=== PATIENT | female | born 1965 | race Caucasian/White ===

== ENCOUNTER 2020-11-02 14:55 | Outpatient (CLI) | payer MEDICARE, OTHER, SELFPAY ==
--- NOTE | 2020-11-02 14:45 | DI.RAD_ITS ---
Exam(s) XR WRIST LT COMPLETE EXAM: XR WRIST LT COMPLETE CLINICAL HISTORY: wrist pain s/p fall,M25.532,W19.XXXA. TECHNIQUE: 2D digital imaging was performed. COMPARISON: No exams were available for comparison FINDINGS: BONES: No acute fracture is present. No bony destructive lesion is seen. JOINTS: The carpal bones are normally aligned. SOFT TISSUE: Normal. IMPRESSION: Unremarkable radiographs of the left wrist. DATA REPOSITORY: RADIATION DOSE DELIVERED:
== END 2020-11-02 15:15 ==
PROVIDERS: PCP Nurse Practitioner; Visit Provider Nurse Practitioner
DX: G89.11 Acute pain due to trauma (principal); M25.532 Pain in left wrist; W19.XXXA Unspecified fall, initial encounter; Y99.8 Other external cause status
CPT/HCPCS: 73110

== ENCOUNTER 2020-11-23 02:28 | Outpatient (CLI) | payer MEDICARE, OTHER, SELFPAY ==
--- NOTE | 2020-11-23 06:30 | DI.MAMMO_ITS ---
Exam(s) MAMMO SCREENING EXAM: MAMMO SCREENING CLINICAL HISTORY: screening,Z12.39 TECHNIQUE: Mammograms were interpreted according to the usual protocol including computer analysis w [employer] system, tomosynthesis and C-view imaging. COMPARISON: 2009 through 2019 from [facility]. FINDINGS: The breasts are composed of scattered fibroglandular densities, Breast Density category B. No suspicious masses or suspicious microcalcifications are seen. No skin thickening or abnormal axillary lymph nodes are seen. Two biopsy marker clips are noted in t he right breast. There has been no significant change from prior exams. IMPRESSION: BI-RADS Category 1, Negative mammogram Yearly screening mammography is recommended. Breast Density - Category B, scattered fibroglandular densities. A negative radiographic report should not delay biopsy if a dominant or clinically suspicious mass is present. Up to ten percent of cancers are not identified on mammography. A negative report may reinforce clinical impression. Adenosis and dense breasts may obscure an underlying neoplasm. False positive reports average 6 to 10%. Patient will receive a letter notifying them of these results.
== END 2020-11-23 02:48 ==
PROVIDERS: PCP Nurse Practitioner; Visit Provider Nurse Practitioner
DX: Z12.31 Encounter for screening mammogram for malignant neoplasm of breast (principal)
CPT/HCPCS: 77063; 77067

== ENCOUNTER 2020-11-23 03:34 | Outpatient (CLI) | payer MEDICARE, OTHER, SELFPAY ==
[2020-11-23 07:55] LABS: HCT 43.2 % (36.0-46.0); HGB 14.3 g/dL (11.2-15.7); MCH 29.9 pg (27.0-33.0); MCHC 33.1 % (32.0-36.0); MCV 90.2 fL (80-95); MPV 10.5 fL (8.0-11.0); Platelet Count 286 10^3/uL (130-400); RBC 4.79 10^6/uL (3.93-5.22); RDW 14.5 % (11.7-14.6); RDW-SD 47.9 fL; WBC 8.84 10^3/uL (4.4-10.8)
[2020-11-23 09:07] LABS: ALT 25 U/L (14-59); AST 17 U/L (15-37); Albumin 4.1 g/dL (3.4-5.0); Alkaline Phosphatase 61 U/L (46-116); Anion Gap 9.1 mmol/L (3-11); BUN 19 mg/dL (7-18); Bilirubin, Total 0.6 mg/dL (0.2-1.0); CO2 30.9 mmol/L (21.0-32.0); Calcium 9.5 mg/dL (8.5-10.1); Calculated LDL 155 mg/dL (<100); Chloride 105 mmol/L (98-107); Cholesterol 233 mg/dL (<200); Glucose 104 mg/dL (74-106); HDL Cholesterol 55 mg/dL (40-60); Potassium 3.8 mmol/L (3.5-5.1); Sodium 145 mmol/L (136-145); Total Protein 7.3 g/dL (6.4-8.2); Triglyceride 119 mg/dL (<150)
== END 2020-11-23 03:35 | disposition home or self-care (01) ==
LOC: LBO 03:34
PROVIDERS: PCP Nurse Practitioner; Visit Provider Nurse Practitioner
DX: E78.5 Hyperlipidemia, unspecified (principal); G90.519 Complex regional pain syndrome I of unspecified upper limb; R29.898 Other symptoms and signs involving the musculoskeletal system
CPT/HCPCS: 36415; 80053; 80061; 85027

== ENCOUNTER 2021-02-02 01:56 | Outpatient (CLI) | payer MEDICARE, OTHER, SELFPAY ==
--- NOTE | 2021-02-02 10:30 | DI.MRI_ITS ---
Exam(s) MR UPPER JOINT LT WO EXAM: MR UPPER JOINT LT WO CLINICAL HISTORY: severe chronic left wrist pain,NEUROPATHY,M25.532,G62.9. TECHNIQUE: Multiplanar multisequence MRI was performed. COMPARISON: No exams were available for comparison FINDINGS: MR examination of the wrist was performed according to the usual protocol. No bony signal abnormality is identified. Bony alignment appears within normal limits. There is no evidence of a ligamentous tear or other injury. Flexor compartment tendons appear within normal limits with no evidence of tenosynovitis or a tear. There is thickening and abnormal signal of the 1st extensor compartment. There is abnormal signal ab ductor pollicis longus and extensor pollicis brevis tendons. There is fluid in the extensor compartm ent and surrounding soft tissues consistent with de Quervain tenosynovitis and tendinopathy. No muscular abnormality identified in the region surveyed. IMPRESSION: Findings consistent with a de Quervain tenosynovitis as described above. DATA REPOSITORY:
--- NOTE | 2021-02-02 11:17 | DI.VRAD_ITS ---
PROCEDURE INFORMATION: Exam: MR Left Upper Extremity Joint Without Contrast; Wrist Exam date and time: 02/02/2021 10:27 AM Age: 55 years old Clinical indication: Injury or trauma; Fall; Blunt trauma (contusions or hematomas); Injury details: Patient fell months ago, on left wrist. Radial pain, radiating to proximal forearm. ; Patient HX: Patient sts she has complex nerve syndrome. TECHNIQUE: Imaging protocol: MR of the Left upper extremity without contrast. Exam focused on the wrist. COMPARISON: CR XR WRIST LT COMPLETE 11/02/2020 3:13 PM FINDINGS: Bones and cartilage: Unremarkable. Joint spaces: No joint effusion. Scapholunate ligament: Unremarkable. No tear. Lunotriquetral ligament: Unremarkable. No tear. Triangular fibrocartilage complex: Unremarkable. No tear. Flexor compartment tendons: Unremarkable. No tear. Extensor compartment tendons: Thickening and increased T2 signal of the 1st extensor compartment with surrounding fluid consistent with de Quervain tenosynovitis and tendinopathy. Muscles: Unremarkable. No acute abnormality. Soft tissues: Subcutaneous edema along the radial aspect of the wrist. IMPRESSION: 1. De Quervain tenosynovitis and tendinopathy Dictated and Authenticated by: Denisa Shah MD. Ordering:TANISHA Lawson MD
== END 2021-02-02 02:16 ==
PROVIDERS: PCP Nurse Practitioner; Visit Provider Nurse Practitioner
DX: M65.4 Radial styloid tenosynovitis [de Quervain] (principal); M25.532 Pain in left wrist
CPT/HCPCS: 73221

== ENCOUNTER → 2021-02-20 09:01 | Outpatient (BNVA) | payer MEDICARE, OTHER, SELFPAY | PROVIDERS: PCP Nurse Practitioner; Referring Provider Nurse Practitioner; Visit Provider Student in an Organized Health Care Education/Training Program | DX: M65.4 Radial styloid tenosynovitis [de Quervain] (principal); G90.512 Complex regional pain syndrome I of left upper limb | CPT/HCPCS: 99203 ==

== ENCOUNTER 2021-04-24 01:31 | Outpatient (CLI) | payer MEDICARE, OTHER, SELFPAY ==
[2021-04-24 11:03] LABS: Source Nasal/Nares
[2021-04-24 14:29] LABS: COVID-19 PCR Negative (Negative)
== END 2021-04-24 01:32 | disposition home or self-care (01) ==
LOC: LBO 01:31
PROVIDERS: PCP Nurse Practitioner; Visit Provider Student in an Organized Health Care Education/Training Program
DX: Z20.822 Contact with and (suspected) exposure to COVID-19 (principal)
CPT/HCPCS: 87635

== ENCOUNTER 2021-04-25 06:09 | Day surgery (SDC) | payer MEDICARE, OTHER, SELFPAY ==
--- NOTE | 2021-04-06 14:47 | ANES.CON_ITS ---
General Date of Service Date of Service: 04/06/21 Reason for Consult Requesting Provider: Cayden Rhodes How Consult Conducted:: Chart Review Reason for Consult:: CRPS Consult Recommendation after Review:: ok to proceed. Meds Allergies and Home Medications Allergies Allergy/AdvReac Type Severity Reaction Status Date / Time nickel Allergy Unknown skin Verified 02/20/21 09:15 reaction & implant/bicep? Penicillins Allergy Unknown childhood Verified 02/20/21 09:15 erythromycin base AdvReac Intermediate tensed Verified 02/20/21 09:15 muscle throughout body Home Medication Medication Instructions Recorded cholecalciferol (vitamin D3) 125 125 mcg PO DAILY 03/15/20 mcg (5,000 unit) capsule docusate sodium 100 mg capsule 100 mg PO DAILY PRN 03/15/20 multivitamin 1 tab PO DAILY 03/15/20 tizanidine 2 mg capsule 2 mg PO TID PRN 03/15/20 lorazepam 0.5 mg tablet 0.5 mg PO BID PRN #60 tab 06/21/20 candesartan 32 mg tablet 32 mg PO DAILY #90 tab 07/11/20 ubrogepant 100 mg tablet 100 mg PO DAILY PRN tab 08/05/20 hydrochlorothiazide 25 mg tablet 25 mg PO DAILY #90 tab 11/02/20 zolpidem 10 mg tablet 10 mg PO QHS PRN #90 tab 11/02/20 rutin 500 mg tablet 500 mg PO DAILY 11/04/20 ketamine benedict See Rx Instructions SUBLINGUAL 12/21/20 .COMPLEX PRN pregabalin 150 mg capsule See Rx Instructions PO TID #360 cap 01/09/21 oxycodone 10 mg tablet 10 mg PO TID PRN #84 tab MDD 30mg 01/24/21 Medical Marijuana INHALATION DAILY PRN 02/13/21 clonidine HCl 0.1 mg tablet 0.1 mg PO BID 02/13/21 ketamine compound cream TOPICAL 02/13/21 nortriptyline 10 mg capsule See Rx Instructions PO QHS PRN 02/13/21 hydromorphone 2 mg tablet 2 mg PO Q6H #20 tab MDD 8mg 02/22/21 PFSH Active Problems Active Problems: Problem Status Onset Code Chronic pain of left wrist M25.532, G89.29 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 K02.9 Non-restorable tooth K08.89 De Quervain's tenosynovitis M65.4 Chronic migraine without aura, intractable, with status migrainosus G43.711 Abdominal pain R10.9 Hiatal hernia K44.9 Fall W19.XXXA Left wrist pain M25.532 Complex regional pain syndrome type 1 of both lower extremities G90.523 Neuropathy G62.9 Snoring R06.83 Obesity E66.9 Routine medical exam Z00.00 Prurigo nodularis 04/13/20 L28.1 Skin lesion L98.9 Migraine without aura, intractable, with status migrainosus G43.011 Carpal tunnel syndrome on both sides 12/19/15 G56.03 Chronic right shoulder pain M25.511, G89.29 Nausea R11.0 Complex regional pain syndrome of upper extremity G90.519 Asthenia R53.1 Muscle pain M79.10 Cervical radiculopathy M54.12 Neck pain M54.2 Sialoadenitis K11.20 Hypertensive disorder I10 Chronic pain 10/01/18 G89.29 Psychophysiologic insomnia F51.04 Generalized anxiety disorder F41.1 Hyperlipidemia E78.5 Transient right leg weakness R29.898 Paresthesia of bilateral legs R20.2 Surgical History Surgical History (Updated 02/03/20 @ 09:34 by Alethea Sanchez) History of breast biopsy (11/30/09) Right History of left oophorectomy (04/09/14) History of salpingectomy (04/09/14) Bilateral History of shoulder surgery (06/24/13) Right Shoulder: A/A w/KRISTIN and biceps tenodsis, distal clavical incision, chromium joint resection. History of shoulder surgery (12/21/14) Metal removed from (R) shoulder. History of surgery Cervical Epidural Steroid Injection: 08/09/15 Caudal Injection: 04/09/12 & 08/27/12 Right Cervical Medial Nerve Branch Block: 08/24/15 History of tonsillectomy (04/22/72) Tobacco Smoking/Tobacco Use Status: Former Tobacco Use Tobacco: How many years used: 6 Passive smoking exposure: No Alcohol Alcohol Intake: current Alcohol intake frequency: holidays/special occasions only Alcohol type: wine Substance Use Substance use: Never Substance use type: marijuana Details: Medical Marijuana Vital Signs & Lab Results Point of Care Results Nursing Point of Care Results: No Data to Display Lab Results Blood Type / Crossmatch: No Data to Display Complete Blood Count: No Data to Display Complete Metabolic Panel: No Data to Display Liver Function Panel: No Data to Display Coagulation Panel: No Data to Display Cardiac Panel: No Data to Display Arterial Blood Gas: No Data to Display Venous Blood Gas: No Data to Display Pancreas Panel: 2 No Data to Display Thyroid Panel: No Data to Display Infectious Disease: No Data to Display Blood Cultures: No Data to Display Toxicology Panel: No Data to Display Panel: No Data to Display Anesthesia Assessment and Plan Preoperative Comments:: 55 yo female for left wrist . Sig PMHx: CRPS type 1 of her extremities/small fiber neuropathy, HTN. She is seen at [facility] for her chronic pain/CRPS. Currently is is on topical ketamine/diclofenac/lidocaine, clonidine, oral and intranasal ketamine, cannabis, nortriptyline, and tizanidine related to her CRPS. She has had short courses of opioids with some effect. Her pain specialist recommends intraoperative ketamine mg/hr, dexmedetomidine, IV acetaminophen for post operative pain. Along with consideration of midaz. Previous Anes: propofol 200 mg, prop gtt at 300 mcg/kg/min for EGD.
[2021-04-25 06:15] VITALS: BP 102/59; PULSE 53; RESP 16; TEMP 36.3; O2SAT 99
--- NOTE | 2021-04-25 06:53 | W.ANESPRE ---
General Info Date of Service Date Performed: 04/25/21 Height: 5 ft 7.25 in Weight: 104.5 kg Body Mass Index (BMI): 35.8 Surgical Procedure: Operation Date: 04/25/21 07:40 Proposed Procedures Side Surgeon p Wrist Dequervains Release Left Cayden Rhodes MD Meds Allergies and Home Medications Allergies Allergy/AdvReac Type Severity Reaction Status Date / Time nickel Allergy Unknown skin Verified 04/25/21 06:32 reaction & implant/bicep? Penicillins Allergy Unknown childhood Verified 04/25/21 06:32 erythromycin base AdvReac Intermediate tensed Verified 04/25/21 06:32 muscle throughout body Home Medication Medication Instructions Recorded cholecalciferol (vitamin D3) 125 125 mcg PO DAILY 03/15/20 mcg (5,000 unit) capsule docusate sodium 100 mg capsule 100 mg PO DAILY PRN 03/15/20 multivitamin 1 tab PO DAILY 03/15/20 tizanidine 2 mg capsule 2 mg PO TID PRN 03/15/20 lorazepam 0.5 mg tablet 0.5 mg PO BID PRN #60 tab 06/21/20 ubrogepant 100 mg tablet 100 mg PO DAILY PRN tab 08/05/20 hydrochlorothiazide 25 mg tablet 25 mg PO DAILY #90 tab 11/02/20 zolpidem 10 mg tablet 10 mg PO QHS PRN #90 tab 11/02/20 pregabalin 150 mg capsule See Rx Instructions PO TID #360 cap 01/09/21 Medical Marijuana INHALATION DAILY PRN 02/13/21 clonidine HCl 0.1 mg tablet 0.1 mg PO BID 02/13/21 nortriptyline 10 mg capsule See Rx Instructions PO QHS PRN 02/13/21 oxycodone 10 mg tablet 10 mg PO QID PRN #112 tab MDD 40mg 04/18/21 oxycodone 10 mg tablet 10 mg PO QID PRN #112 tab MDD 40mg 04/18/21 oxycodone 10 mg tablet 10 mg PO QID PRN #112 tab MDD 40mg 04/18/21 candesartan 32 mg PO HS 04/24/21 Current Visit Medications: Current Medications Generic Name Dose Route Start Last Admin Trade Name Freq PRN Reason Stop Dose Admin Ringer's Solution 1,000 mls @ 80 mls/hr 04/25/21 06:00 IV 02/02/22 23:59 INFUSION MONIE Cefazolin Sodium/Dextrose 2 gm in 50 mls @ 100 mls/hr 04/25/21 06:00 Ancef Duplex IVPB 05/24/21 23:59 PREOP MONIE IV Miscellaneous Supplies 1 each 04/25/21 06:00 Iv Access IV 05/24/21 23:59 DIRECTED MONIE Sodium Chloride 0 ml 04/25/21 06:00 Normal Saline Flush 10 Ml Syr IV 05/24/21 23:59 PRN PRN Sodium Chloride 0 ml 04/25/21 06:00 Normal Saline 10 Ml Vial IJ 05/24/21 23:59 DIRECTED PRN Sterile Water 0 ml 04/25/21 06:00 Water,Injection,Sterile 10 Ml Vial IJ 05/24/21 23:59 DIRECTED PRN PFSH Active Problems Active Problems: Problem Status Onset Code Chronic pain of left wrist M25.532, G89.29 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 K02.9 Non-restorable tooth K08.89 De Quervain's tenosynovitis M65.4 Chronic migraine without aura, intractable, with status migrainosus G43.711 Abdominal pain R10.9 Hiatal hernia K44.9 Fall W19.XXXA Left wrist pain M25.532 Complex regional pain syndrome type 1 of both lower extremities G90.523 Neuropathy G62.9 Snoring R06.83 Obesity E66.9 Routine medical exam Z00.00 Prurigo nodularis 04/13/20 L28.1 Skin lesion L98.9 Migraine without aura, intractable, with status migrainosus G43.011 Carpal tunnel syndrome on both sides 12/19/15 G56.03 Chronic right shoulder pain M25.511, G89.29 Nausea R11.0 Complex regional pain syndrome of upper extremity G90.519 Asthenia R53.1 Muscle pain M79.10 Cervical radiculopathy M54.12 Neck pain M54.2 Sialoadenitis K11.20 Hypertensive disorder I10 Chronic pain 10/01/18 G89.29 Psychophysiologic insomnia F51.04 Generalized anxiety disorder F41.1 Hyperlipidemia E78.5 Transient right leg weakness R29.898 Paresthesia of bilateral legs R20.2 Surgical History Surgical History History of breast biopsy (11/30/09) Right History of left oophorectomy (04/09/14) History of salpingectomy (04/09/14) Bilateral History of shoulder surgery (06/24/13) Right Shoulder: A/A w/KRISTIN and biceps tenodsis, distal clavical incision, chromium joint resection. History of shoulder surgery (12/21/14) Metal removed from (R) shoulder. History of surgery Cervical Epidural Steroid Injection: 08/09/15 Caudal Injection: 04/09/12 & 08/27/12 Right Cervical Medial Nerve Branch Block: 08/24/15 History of tonsillectomy (04/22/72) Tobacco Smoking/Tobacco Use Status: Former Tobacco Use Tobacco: How many years used: 6 Passive smoking exposure: No Alcohol Alcohol Intake: current Alcohol intake frequency: holidays/special occasions only Alcohol type: wine Substance Use Substance use: Occasionally Substance use type: marijuana Details: Medical Marijuana Vital Signs and Lab Results Vital Signs Most Recent Vital Signs in EMR: Most Recent Vital Signs Temp Pulse Resp BP Pulse Ox 36.3 C L 53 L 16 102/59 L 99 04/25/21 06:15 04/25/21 06:15 04/25/21 06:15 04/25/21 06:15 04/25/21 06:15 Lab Results Blood Type / Crossmatch: No Data to Display Complete Blood Count: No Data to Display Complete Metabolic Panel: No Data to Display Liver Function Panel: No Data to Display Coagulation Panel: No Data to Display Cardiac Panel: No Data to Display Arterial Blood Gas: No Data to Display Venous Blood Gas: No Data to Display Pancreas Panel: No Data to Display Thyroid Panel: No Data to Display Infectious Disease: Coronavirus (COVID-19)(PCR) Negative (Negative) 04/24/21 08:41 04/24/21 Coronavirus 2019 Source Nasal/Nares 04/24/21 08:41 04/24/21 Blood Cultures: No Data to Display Toxicology Panel: No Data to Display Panel: No Data to Display Anesthesia Assessment and Plan Anesthesia History Personal History: No History of Anesthesia Complications Family History: No Family History of Anesthesia Complications Exercise Tolerance Exercise Tolerance: Metabolic Equivalents>4 Pertinent Negatives Pertinent Negatives: No Symptoms of GERD, No Major Cardiovascular Symptoms or Complaints, No Major Pulmonary Symptoms or Complaints and No History of CVA/TIA Cardiac & Pulmonary Exam Cardiac Exam: Normal S1/S2 Heart Sounds Pulmonary Exam: Clear Bilateral Breath Sounds Implantable Cardiac Device Does patient have a Pacemaker or an ICD?: No Airway Exam Known Difficult Airway: No Mallampati Class: 3 Mouth Opening: Narrow (< 3cm) Thyromental Distance: Greater than 3 cm Neck Range of Motion: Full ROM Neck Circumference: Normal Teeth Condition: Normal Dentition ASA Classification ASA Score: ASA 2 Emergency Case?: No NPO Status NPO Status: NPO Clears >2 hours, Solids >8 hours Status Status: History of Hysterectomy Anesthesia Plan Resuscitation Status: Full Code Anesthesia Technique: General Anesthesia Airway Planned: LMA Monitors Used: Standard Monitors
[2021-04-25] MEDS: Lactated Ringers 1,000 ML 80 ML IV (06:59)
[2021-04-25 07:01] VITALS: BMI 35.8
--- NOTE | 2021-04-25 07:11 | W.PREOPHP ---
Assessment and Plan Assessment and plan (1) De Quervain's tenosynovitis: Status: Acute Assessment and plan: Angeles is a 55-year-old who has de Quervain's tenosynovitis of the left wrist. Please see the previous office note for complete detailed clinical history but at this point she elects to proceed with operative intervention. Once again I reviewed the technical features of the case. I was very clear with Sharon that we can continue to treat this nonoperatively although she is quite adamant that it needs to be fixed. I have expressed concerns that this could exacerbate her underlying CRPS. She has discussed this with Dr. Jones and Dr. Jones has made recommendations for the anesthetic but also had similar concerns. Despite this, Angeles feel that is the best option for her as she has responded poorly to current nonoperative treatment regimens. We will follow Dr. Jones's recommendations with the use of ketamine and other agents for this short procedure. I will also provide an abundance of local anesthetic in the area which hopefully will help with the initial pain response. She does take oxycodone on a daily basis which she does find to be very helpful. Given that it helps I think we should just simply increase that dosage if needed. I am hopeful that her pain after surgery will be minimal. However, I think is very reasonable for her to take up to 6-8 10 mg oxycodones in 1 day versus her typical 3-4. But expect that this would only be for a few days at most and I would worry about continuing it for longer than that. However, she currently has a supply of oxycodone at this time which we will continue which may need to be replenished sooner due to the increase usage. I think this is the best plan rather than prescribing a different type of narcotic since that she has had good success with oxycodone. I will work with Lulu Haider coordination with this. I was very honest with Sharon that she should expect pain and she has to work through some of that. However, we will make our best attempts to manage as much as possible. The biggest concern would be an exacerbation of her CRPS for which I would recommend that she revisit with Dr. Jones if that were to happen. I also reviewed the risk of damage to superficial nerves, recurrence, tendon subluxation, need for repeat procedures due to missed compartment release, stiffness, pain. Despite these risks, she elects to proceed. History of Present Illness History of Present Illness Chief Complaint: Left de Quervain's tenosynovitis Narrative: Alisha is a 55-year-old female who I have seen previously for multiple ailments. Her most recent complaint is of the left wrist and hand. She has been diagnosed by de Quervain's tenosynovitis by Dr. Zhou at [facility] as well as myself. She has failed conservative, nonoperative treatment plan they consist of bracing, therapy, and other medical modalities. She actually feels that things have only worsened drastically. Unfortunately, her history is complicated by an unrelenting and persistent complex regional pain syndrome, small fiber neuropathy. This mostly affects the left arm although the entire body has complaints at this time. She is followed closely by Dr. Jones at [facility] as well as Dr. Haider here locally. Given the persistence of her symptoms and the heightened detriment they have on her day-to-day life, I did offer surgical release of the first extensor compartment. Please see the previous office note for complete details. Since that appointment she feels that things have only worsened. She continues have pain over the radial aspect of the wrist although the entire hand has a some effect. She did have dental surgery in February which did well but additional hydromorphone did not seem to improve her pain control afterwards. She denies any other major medical issues since the last appointment. No sick contacts. COVID-19 negative. Review of Systems All systems reviewed & are unremarkable except as noted in HPI and below PFSH All Active Problems Chronic pain of left wrist (Acute) 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 (Acute) per [facility] maxillo surg note from 12/29/20 Non-restorable tooth (Acute) per [facility] Maxillo surg note from 12/29/20 De Quervain's tenosynovitis (Acute) Per [facility] Orthopaedics note 12/06/20 Chronic migraine without aura, intractable, with status migrainosus (Acute) Abdominal pain (Acute) Hiatal hernia (Chronic) Fall (Acute) Left wrist pain (Acute) Complex regional pain syndrome type 1 of both lower extremities (Acute) [facility] Ctr Pain and Spine Neuropathy (Chronic) Small Fiber neuropathy, bx 2017 and 07/04/20 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 Opioids excite NMDA receptor which can perpetuate CRPS symptoms Asthenia (Acute) Muscle pain (Acute) Cervical radiculopathy (Acute) Neck pain (Acute) Sialoadenitis (Acute) Hypertensive disorder (Chronic) Chronic pain (Chronic 10/01/18) Psychophysiologic insomnia (Acute) Generalized anxiety disorder (Acute) Hyperlipidemia (Acute) Transient right leg weakness (Acute) Paresthesia of bilateral legs (Acute) Surgical History History of breast biopsy (11/30/09) Right History of left oophorectomy (04/09/14) History of salpingectomy (04/09/14) Bilateral History of shoulder surgery (06/24/13) Right Shoulder: A/A w/KRISTIN and biceps tenodsis, distal clavical incision, chromium joint resection. History of shoulder surgery (12/21/14) Metal removed from (R) shoulder. History of surgery Cervical Epidural Steroid Injection: 08/09/15 Caudal Injection: 04/09/12 & 08/27/12 Right Cervical Medial Nerve Branch Block: 08/24/15 History of tonsillectomy (04/22/72) Family History Father Adopted Throat cancer Hypertension Mother Anxiety Maternal Grandmother Diabetes Sister Diabetes Lupus Social History Smoking/Tobacco Use Status: Former Tobacco Use Quit Date: 04/22/02 Tobacco: How many years used: 6 Smoking risk assessment performed?: Yes Alcohol Intake: current Alcohol Intake frequency: holidays/special occasions only Alcohol type: wine Drug use: Occasionally Substance use type: marijuana Details: Medical Marijuana Adopted: No Caregiver/Support person: No Foster care: No Household members: significant other Housing: house Communication Needs: None and Corrective Lenses Do you need help understanding health information?: Rarely Sexually active: Yes Do you think of yourself as: straight/heterosexual Current gender identity: female What is your relationship status?: How often do you talk on the phone with friends or family?: three or more times per week Do you belong to any clubs or organized social groups?: no Panel score (0-1 are the most socially isolated patients): 2 What type of physical activity do you participate in: none Special curtis needs: No Seatbelt use: always Drive 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 Penicillins Allergy Unknown childhood Verified 04/25/21 06:32 erythromycin base AdvReac Intermediate tensed Verified 04/25/21 06:32 muscle throughout body Home Medications Medication Instructions Recorded Confirmed Type cholecalciferol (vitamin D3) 125 125 mcg PO DAILY 03/15/20 04/25/21 History mcg (5,000 unit) capsule docusate sodium 100 mg capsule 100 mg PO DAILY PRN 03/15/20 04/25/21 History multivitamin 1 tab PO DAILY 03/15/20 04/25/21 History tizanidine 2 mg capsule 2 mg PO TID PRN 03/15/20 04/25/21 History lorazepam 0.5 mg tablet 0.5 mg PO BID PRN #60 tab 06/21/20 04/24/21 Rx ubrogepant 100 mg tablet 100 mg PO DAILY PRN tab 08/05/20 04/25/21 History hydrochlorothiazide 25 mg tablet 25 mg PO DAILY #90 tab 11/02/20 04/25/21 Rx zolpidem 10 mg tablet 10 mg PO QHS PRN #90 tab 11/02/20 04/25/21 Rx pregabalin 150 mg capsule See Rx Instructions PO TID #360 cap 01/09/21 04/25/21 Rx Medical Marijuana INHALATION DAILY PRN 02/13/21 04/18/21 History clonidine HCl 0.1 mg tablet 0.1 mg PO BID 02/13/21 04/25/21 History nortriptyline 10 mg capsule See Rx Instructions PO QHS PRN 02/13/21 04/25/21 History oxycodone 10 mg tablet 10 mg PO QID PRN #112 tab MDD 40mg 04/18/21 04/24/21 Rx oxycodone 10 mg tablet 10 mg PO QID PRN #112 tab MDD 40mg 04/18/21 04/24/21 Rx oxycodone 10 mg tablet 10 mg PO QID PRN #112 tab MDD 40mg 04/18/21 04/25/21 Rx candesartan 32 mg PO HS 04/24/21 04/25/21 History Exam Narrative Exam Narrative: Evaluation of the left hand still shows persistent pain over the first extensor compartment with what appears to be a cyst at the end of the first extensor compartment. Exquisite tenderness over this area. Positive Angel test. Resp Effort & Inspection: normal respiratory effort Cardio Rate: regular rate Rhythm: regular rhythm Results Last Vital Signs Temp 36.3 C L 04/25/21 06:15 Pulse 53 L 04/25/21 06:15 Resp 16 04/25/21 06:15 BP 102/59 L 04/25/21 06:15 Pulse Ox 99 04/25/21 06:15
--- NOTE | 2021-04-25 07:22 | W.PM.DSUDISC ---
Discharge Plan Disposition Patient Disposition: HOME Condition: Stable Discharge Details Reason For Visit: Left De Quervain's Tenosynovitis Attending Provider: Cayden Rhodes Primary Care Provider: Lulu Haider Home Meds and New Rx's Prescriptions: New celecoxib 200 mg capsule 200 mg PO BID PRN (Reason: pain) Qty: 60 RF: 1 acetaminophen 500 mg tablet 1,000 mg PO Q8H PRN (Reason: pain) Qty: 90 RF: 3 Continued cholecalciferol (vitamin D3) 125 mcg (5,000 unit) capsule 125 mcg PO DAILY RF: 0 tizanidine 2 mg capsule 2 mg PO TID PRNRF: 0 multivitamin Tablet 1 tab PO DAILY RF: 0 docusate sodium 100 mg capsule 100 mg PO DAILY PRNRF: 0 lorazepam 0.5 mg tablet 0.5 mg PO BID PRN (Reason: anxiety) Qty: 60 RF: 5 hydrochlorothiazide 25 mg tablet 25 mg PO DAILY Qty: 90 RF: 3 zolpidem 10 mg tablet 10 mg PO QHS PRN (Reason: sleep) Qty: 90 RF: 3 oxycodone 10 mg tablet 10 mg PO QID MDD 40mg PRN (Reason: pain) Qty: 112 RF: 0 oxycodone 10 mg tablet 10 mg PO QID MDD 40mg PRN (Reason: pain) Qty: 112 RF: 0 ubrogepant 100 mg tablet 100 mg PO DAILY PRNRF: 0 pregabalin [Lyrica] 150 mg capsule See Rx Instructions PO TID Qty: 360 RF: 1 clonidine HCl 0.1 mg tablet 0.1 mg PO BID RF: 0 nortriptyline 10 mg capsule See Rx Instructions PO QHS PRNRF: 0 Medical Marijuana inhalation DAILY PRNRF: 0 candesartan 32 mg tablet 32 mg PO HS RF: 0 Changed oxycodone 10 mg tablet See Rx Instructions .ROUTE .COMPLEX MDD 40mg PRN (Reason: pain) Qty: 112 RF: 0 Discharge Instructions Additional Instructions: Kirk's Discharge Instructions Activity: You should keep the hand elevated as much as possible for the first few days. You may use the other fingers as tolerated but avoid trying to do too much too soon. You may perform light activities with the soft splint in place. Dressing/Cast: Your soft splint and dressing should stay in place at all times. Do NOT get it wet. You may loosen the LAUREN wrap if you feel it is too tight and then rewrap more loosely. All sutures are buried in the skin with nothing to be removed. Medications: - You should take Tylenol and Celebrex for baseline pain control. - You have your baseline Oxycodone 10mg for breakthrough pain. You may take this up to every 3-4 hours (or a maximum of #8 - 10mg Oxycodone per day). This should only be for a few days and more than this should be discussed with Dr. Rhodes or your PCP, Lulu Haider. - You may apply ice over thumb and dressing although it may be a of minimal efficacy given the dressing. Follow-up: 10 days Referrals: Cayden Rhodes MD [ [facility] STAFF PHYSICIAN] - Equipment/Supplies: Splint Activity:: Elevate Remove Dressings/Wound Care:: Do Not Remove Shower/Bathe:: Cover Diet:: As Tolerated Discharge Orders Discharge Orders: Discharge Order (Routine); Ordered 04/25/21 Ordered By: Cayden Rhodes DS: Diagnosis Discharge Diagnosis (1) De Quervain's tenosynovitis: Status: Acute
[2021-04-25] MEDS: ceFAZolin 2 GM/50 ML BAG IVPB (07:39)
[2021-04-25 08:33] VITALS: BP 139/48; PULSE 67; RESP 24; TEMP 36.4; O2SAT 94
[2021-04-25 08:38] VITALS: BP 138/58; PULSE 61; RESP 14; TEMP 36.6; O2SAT 100
[2021-04-25 08:43] VITALS: BP 140/60; PULSE 62; RESP 14; TEMP 36.6; O2SAT 100
--- NOTE | 2021-04-25 08:45 | W.ANESPOSTOP ---
Postoperative Evaluation Date, Time and Location Date Performed: 04/25/21 Time Performed: 08:45 Patient Location: Day Surgery Unit Vital Signs Most Recent Imported Vital Signs: Most Recent Vital Signs Temp Pulse Resp BP Pulse Ox 36.4 C L 67 24 139/48 L 94 04/25/21 08:33 04/25/21 08:33 04/25/21 08:33 04/25/21 08:33 04/25/21 08:33 Assessment Mental Status: Awake (Alert & Oriented to Patient Baseline) Airway and Respiratory Function: Patent airway with normal (patient baseline) respiratory exam Cardiovascular Function: Hemodynamically Stable Hydration Status: Adequately Hydrated Nausea & Vomiting: No Nausea or Vomiting Pain: Pt. Denies Any Pain (States pain level is ZERO) Peripheral Nerve Block: Patient did not receive a nerve block
[2021-04-25 09:02] VITALS: BP 144/77; PULSE 62; RESP 16; TEMP 36.2; O2SAT 97
[2021-04-25 09:33] VITALS: BP 133/74; PULSE 63; RESP 16; TEMP 36.1; O2SAT 94
--- NOTE | 2021-04-25 20:20 | W.PM.OP ---
Date of service: 04/25/21 Time of Service: 08:08 Operative Note Operative Note DATE OF PROCEDURE: 04/25/21 PRE-OP DIAGNOSIS: Left Dequervain's Tenosynovitis POST-OP DIAGNOSIS: same PROCEDURE: Left First Extensor Compartment Release SURGEON: Cayden Rhodes ANESTHESIA TYPE: General:No Airway Refer to Anesthesia Record ESTIMATED BLOOD LOSS: 0 PATHOLOGY: none sent TOURNIQUET TIME: 0 COMPLICATIONS: None Patient was transported to: same day Patient's condition: stable Indications: Angeles is a 55 year old female who has had symptoms of Dequervain's tenosynovitis. Nonoperative treatment options had been trialed. Given their failure, I offered operative intervention. I reviewed the technical details of a first extensor compartment release. I reviewed the risk of the procedure to include bleeding, infection, pain, stiffness, tendon instability, damage to the superficial radial nerve, and complete release. Despite these risks, the patient elected to proceed. Findings: There was a tightened first excessive compartment. No subcompartments were seen encasing the EPB tendon. Procedure Description: Angeles was greeted in the preoperative holding area. Name and surgical site were confirmed. The history and physical was completed. The consent was reviewed the patient and signed. She was taken back to the operating room. The patient was placed in the supine position and general anesthesia care was initiated under the recommendations and suggestions made by Dr. Jones of the pain clinic at [facility] for her systemic complex regional pain syndrome. The left was then prepped with ChloraPrep and draped in a standard fashion after a nonsterile tourniquet was placed high up onto the arm. Prophylactic antibiotics in the form of cefazolin were administered. A timeout was performed for safe surgery. The surgical site was drawn on the skin. The planned surgical field was anesthetized with 0.25% bupivacaine with epinephrine. No tourniquet was used in efforts to minimize unnecessary trauma or pain. A 2 cm incision was made longitudinally over the radial styloid. The skin was incised only. The deep tissue subcutaneous fat was dissected with a tenotomy scissors trying to protect bridge of the superficial radial nerve. Any branches that were identified were retracted out of the way. The first compartment extensor tendons were then identified. The distal aspect of the first compartment was noted and were released. This release was performed more on the dorsal side to prevent tendon subluxation. The entirety of the first extensor compartment was then released. The slips of the abductor pollicis longus tendon were inspected. They removed to confirm the appropriate motion of the thumb. The extensor pollicis brevis tendon was then identified. Both EPB and APL were identified and there is no subcompartments. Traction on the tendon was also used to confirm appropriate extension of the thumb confirming the release of the appropriate tendon. The dorsal radial surface of the radius was once again inspected to make sure there is no other sub-compartments or other restrictions to tendon motion. The wound was then thoroughly irrigated. The deep tissue was closed with a 3-0 Vicryl. The skin was closed with a running subjective 4-0 Monocryl. Skin glue was applied. The tourniquet is released without significant bleeding. The hand was dressed with 4 x 4's, web roll, thumb spica splint. All counts were correct. Patient was transferred back to same day surgery area in stable condition.
== END 2021-04-25 10:13 | disposition home or self-care (01) ==
PROVIDERS: PCP Nurse Practitioner; Visit Provider Student in an Organized Health Care Education/Training Program
PROC: (CPT 25000; principal; 2021-04-25 07:30)
DX: M65.4 Radial styloid tenosynovitis [de Quervain] (principal)
CPT/HCPCS: 25000; J0131; J0690; J1100; J1885; J2001; J2250; J2405

== ENCOUNTER 2021-05-05 04:10 | Outpatient (CLI) | payer MEDICARE, OTHER, SELFPAY ==
[2021-05-05 09:41] LABS: Hemoglobin A1C 5.8 % (<5.7)
[2021-05-05 10:54] LABS: TSH (W/Ref FT4) 1.47 uIU/mL (0.36-3.74)
[2021-05-05 17:21] LABS: Estradiol 25 pg/mL (See Note)
[2021-05-05 18:23] LABS: FSH 64.6 mIU/mL (See Note); LH 33.6 mIU/mL (See Note)
== END 2021-05-05 04:11 | disposition home or self-care (01) ==
LOC: LBO 04:10
PROVIDERS: PCP Nurse Practitioner; Visit Provider Nurse Practitioner
DX: R23.2 Flushing (principal); R73.01 Impaired fasting glucose; R20.2 Paresthesia of skin; Z47.89 Encounter for other orthopedic aftercare; M65.4 Radial styloid tenosynovitis [de Quervain]
CPT/HCPCS: 36415; 82670; 83001; 83002; 83036; 84443

== ENCOUNTER → 2021-06-29 09:04 | Outpatient (BNVA) | payer MEDICARE, OTHER, SELFPAY | PROVIDERS: PCP Nurse Practitioner; Referring Provider Nurse Practitioner; Visit Provider Student in an Organized Health Care Education/Training Program | DX: M65.4 Radial styloid tenosynovitis [de Quervain] (principal) ==

== ENCOUNTER 2021-08-21 11:03 | Outpatient (CLI) | payer MEDICARE, OTHER, SELFPAY ==
--- NOTE | 2021-08-21 11:00 | RT.EKG_ITS ---
APPROVED REPORT Exam: Resting ECG Reason for Exam: prior to starting Methadone Patient Location: O HR:46 bpm ECG Measurements Heart Rate 46 AXIS OR 193 P 56 QRSd 104 QRS 12 QT 478 T 37 QTc 421 Conclusion Sinus bradycardia...rate< 60 ST elev, probable normal early repol pattern...ST elevation, age<55
== END 2021-08-21 11:04 | disposition home or self-care (01) ==
LOC: DI.KIM 11:04
PROVIDERS: PCP Nurse Practitioner; Visit Provider Nurse Practitioner
DX: Z51.81 Encounter for therapeutic drug level monitoring (principal)
CPT/HCPCS: 93010

== ENCOUNTER 2021-08-31 02:27 | Outpatient (CLI) | payer MEDICARE, OTHER, SELFPAY | END 2021-08-31 02:28 | disposition home or self-care (01) | LOC: LBO 02:27 | PROVIDERS: PCP Nurse Practitioner; Referring Provider Nurse Practitioner ==

== ENCOUNTER 2021-09-06 02:48 | Outpatient (CLI) | payer MEDICARE, OTHER, SELFPAY | END 2021-09-06 02:49 | disposition home or self-care (01) | LOC: LBO 02:48 | PROVIDERS: PCP Nurse Practitioner; Visit Provider Nurse Practitioner ==

== ENCOUNTER 2021-12-04 12:48 | Emergency (ER) | payer MEDICARE, OTHER, SELFPAY ==
[2021-12-04 12:55] VITALS: BP 117/73; PULSE 53; RESP 18; TEMP 36.5; O2SAT 97
--- NOTE | 2021-12-04 13:13 | ED.GENADUL_ITS ---
Discharge Plan Disposition Patient Disposition: HOME Condition: Stable Discharge Details Clinical Impression: Migraine Primary Care Provider: Lulu Haider ED Provider: Sagar Estrada Home Meds and New Rx's Prescriptions: Continued cholecalciferol (vitamin D3) 125 mcg (5,000 unit) capsule 125 mcg PO DAILY tizanidine 2 mg capsule 2 mg PO TID PRN Hold Instructions: Home Medication placed on hold at Doctor's office multivitamin Tablet 1 tab PO DAILY docusate sodium 100 mg capsule 100 mg PO DAILY PRN lorazepam 0.5 mg tablet 0.5 mg PO BID PRN (Reason: anxiety) Qty: 60 5RF pregabalin [Lyrica] 150 mg capsule See Rx Instructions PO TID Qty: 360 3RF Rx Instructions: 150mg QAM, and qnoon. 300mg at HS. black cohosh root extract PO hydromorphone [Dilaudid] 2 mg tablet 2 mg PO Q4H MDD 8mg PRN (Reason: pain) Qty: 20 0RF clonidine HCl 0.1 mg tablet 0.1 mg PO BID Rx Instructions: [facility] [place] [facility] Medical Marijuana inhalation DAILY PRN Rx Instructions: Renewed by Pain [facility] 02/09/21 [facility] Ubrelvy 50 mg tablet 50 mg PO DAILY Label Comments: 10/25/21 note Rx Instructions: as a single dose; may repeat once in >=2 hours after first dose if needed zolpidem 10 mg tablet 10 mg PO QHS PRN (Reason: sleep) Qty: 90 1RF oxycodone 10 mg tablet 10 mg PO QID PRN MDD 40mg PRN (Reason: pain) Qty: 112 0RF Discharge Instructions Instructions: Migraine Headache (ED) Additional Instructions: follow up with your neurologist if you feel more ill, have fevers or persistent vomit return to the emergency department Medical Decision Making 56 yo female with hx of complex regional pain syndrome, migraines, who comes in with chief complaint of headache for 8 days. She denies fevers, chills, chest pain, neck pain or stiffness. She states the pain slowly worsens throughout the dayand is worse at night. She denies trauma. She is in no distress on exam. SHe localizes the pain all throughout her head. She has no neck stiffness or meningismus. CN II-XII intact, normal speech, no focal motor or sensation deficits. She has also noted about 30 pound weight loss over the last few months as well. Suspect migraine vs tension headache, pain is not thunderclap in etiology so doubt subarachnoid. 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 Will obtain ct head given continued pain to evaluate for mass and less likely hemorrhage. Will treat her symptoms with compazine and toradol and reassess. patient with unremarkable labs and imaging, is resting in bed in no distress. Discussed with pt and feel she is stable for d/c, she will f/u with her neurologist at [facility] [place], return precautions given Differential Diagnosis Differential Diagnosis: migraine, tension headache Medical Records Medical records reviewed: Yes I reviewed the patient's medical records. Imaging Data Radiologic Study: Attestation: I personally reviewed and interpreted this imaging study as follows: Imaging: CT Scan Radiologist's impression: no acute findings Lab Data Lab results reviewed: Yes I reviewed the patient's lab results. HPI General Mode of arrival: ambulatory . Date/Time Provider Initiated Documentation: 12/04/21 12:56 . Limitations to Documentation: no limitations . Information obtained by: patient . History of Present Illness 56 year old F presents to the emergency department with the chief complaint of headache, described as moderate and severe, and is localized to the head. Patient reports no radiation. Patient started experiencing this day(s) (8) and it has been constant. No relieving factors improve symptom(s), No exacerbating factors reported . Related Data Home Medications Medication Instructions Recorded Confirmed cholecalciferol (vitamin D3) 125 125 mcg PO DAILY 03/15/20 12/04/21 mcg (5,000 unit) capsule docusate sodium 100 mg capsule 100 mg PO DAILY PRN 03/15/20 12/04/21 multivitamin 1 tab PO DAILY 03/15/20 12/04/21 tizanidine 2 mg capsule 2 mg PO TID PRN 03/15/20 12/04/21 lorazepam 0.5 mg tablet 0.5 mg PO BID PRN anxiety #60 tabs 06/21/20 12/04/21 Medical Marijuana inhalation DAILY PRN 02/13/21 10/03/21 clonidine HCl 0.1 mg tablet 0.1 mg PO BID 02/13/21 12/04/21 black cohosh root extract PO 09/07/21 10/03/21 pregabalin 150 mg capsule (Lyrica) See Rx Instructions PO TID #360 10/03/21 12/04/21 caps ubrogepant 50 mg tablet (Ubrelvy) 50 mg PO DAILY 10/30/21 12/04/21 hydromorphone 2 mg tablet 2 mg PO Q4H PRN pain #20 tabs 11/07/21 12/04/21 (Dilaudid) oxycodone 10 mg tablet 10 mg PO QID PRN PRN pain #112 tabs 11/20/21 12/04/21 zolpidem 10 mg tablet 10 mg PO QHS PRN sleep #90 tabs 11/20/21 12/04/21 Previous Rx's Medication Instructions Recorded lorazepam 0.5 mg tablet 0.5 mg PO BID PRN anxiety #60 tabs 06/21/20 pregabalin 150 mg capsule (Lyrica) See Rx Instructions PO TID #360 10/03/21 caps hydromorphone 2 mg tablet 2 mg PO Q4H PRN pain #20 tabs 11/07/21 (Dilaudid) oxycodone 10 mg tablet 10 mg PO QID PRN PRN pain #112 tabs 11/20/21 zolpidem 10 mg tablet 10 mg PO QHS PRN sleep #90 tabs 11/20/21 Allergies Allergy/AdvReac Type Severity Reaction Status Date / Time nickel Allergy Unknown skin Verified 12/04/21 12:59 reaction & implant/bicep? Penicillins Allergy Unknown childhood Verified 12/04/21 12:59 erythromycin base AdvReac Intermediate tensed Verified 12/04/21 12:59 muscle throughout body mexiletine AdvReac Unknown nosebleeds Verified 12/04/21 12:59 Opioids-Methadone and Related AdvReac Unknown worsened Verified 12/04/21 12:59 headaches General Stated Complaint: GenMedical JOSE: 3 Review of Systems All systems reviewed & are unremarkable except as noted in HPI and below Constitutional Constitutional: Denies chills, Denies fever(s) and Denies weakness Eyes Eyes: Denies loss of vision ENT Ears, Nose, Mouth, and Throat: Denies change in voice Cardiovascular Cardiovascular: Denies chest pain and Denies dyspnea Respiratory Respiratory: Denies cough and Denies dyspnea Gastrointestinal Gastrointestinal: Denies abdominal pain and Denies vomiting Musculoskeletal Musculoskeletal: Denies joint swelling Integumentary/Breasts Skin/Breast: Denies rash Neurologic Neurologic: Denies loss of vision and Denies weakness PFSH All Active Problems (Updated 12/04/21 @ 15:04 by Sagar Estrada MD) Migraine (Chronic) Complex regional pain syndrome of both lower extremities (Acute) Chronic pain of left wrist (Acute) 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 (Acute) per [facility] [place] 12[place]29[place]20 Non-restorable tooth (Acute) per [facility] [place] from 12/29/20 Chronic migraine without aura, intractable, with status migrainosus (Acute) Abdominal pain (Acute) Hiatal hernia (Chronic) Fall (Acute) Left wrist pain (Acute) Neuropathy (Chronic) Small Fiber neuropathy, bx 2016 and 07/04/20 [facility] Snoring (Acute) Obesity (Chronic) Prurigo nodularis (Acute 04/13/20) Skin lesion (Acute) Carpal tunnel syndrome on both sides (Acute 12/19/15) Chronic right shoulder pain (Acute) Nausea (Acute) Complex regional pain syndrome of upper extremity (Acute) 08/22/20 [facility] Pt should not receive opioids which can exacerbate CRPS symptoms. Opioids excite NMDA receptor which can perpetuate CRPS symptoms Asthenia (Acute) Muscle pain (Acute) Cervical radiculopathy (Acute) Neck pain (Acute) Sialoadenitis (Acute) Hypertensive disorder (Chronic) Chronic pain (Chronic 10/01/18) Psychophysiologic insomnia (Acute) Generalized anxiety disorder (Acute) Hyperlipidemia (Acute) Transient right leg weakness (Acute) Paresthesia of bilateral legs (Acute) Surgical History (Updated 06/29/21 @ 09:22 by ERKI Melo) De Quervain's tenosynovitis LEFT S/P Release: 04/25/2021 History of breast biopsy (11/30/09) Right History of left oophorectomy (04/09/14) History of salpingectomy (04/09/14) Bilateral History of shoulder surgery (06/24/13) Right Shoulder: A/A w/KRISTIN and biceps tenodsis, distal clavical incision, chromium joint resection. History of shoulder surgery (12/21/14) Metal removed from (R) shoulder. History of surgery Cervical Epidural Steroid Injection: 08/09/15 Caudal Injection: 04/09/12 & 08/27/12 Right Cervical Medial Nerve Branch Block: 08/24/15 History of tonsillectomy (04/22/72) Family History Father Adopted Throat cancer Hypertension Mother Anxiety Maternal Grandmother Diabetes Sister Diabetes Lupus Social History Smoking/Tobacco Use Status: Former Tobacco Use Quit Date: 04/22/02 Tobacco: How many years used: 6 Smoking risk assessment performed?: Yes Alcohol Intake: current Alcohol Intake frequency: holidays/special occasions only Alcohol type: wine Drug use: Occasionally Substance use type: marijuana Details: Medical Marijuana Adopted: No Caregiver/Support person: No Foster care: No Household members: significant other Housing: house Communication Needs: None and Corrective Lenses Do you need help understanding health information?: Rarely Sexually active: Yes Do you think of yourself as: straight/heterosexual Current gender identity: female What is your relationship status?: How often do you talk on the phone with friends or family?: three or more times per week Do you belong to any clubs or organized social groups?: no Panel score (0-1 are the most socially isolated patients): 2 What type of physical activity do you participate in: none Special curtis needs: No Seatbelt use: always 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 Do you feel safe at home: Yes Do you feel safe in your relationship?: Yes Exam Const General: no acute distress Orientation: alert HENMT Head: normal to inspection Ears: external ears normal General nose exam: external nose normal Mouth: moist mucous membranes Eyes General: appearance normal, both eyes and all related structures Neck Neck: normal visual inspection Resp Effort & Inspection: normal respiratory effort and able to speak in complete sentences Cardio Rate: regular rate Skin General skin exam: no rashes or lesions noted Neuro General: patient alert and patient oriented x3 Extrem General: normal to inspection Psych Mental Status: mental status grossly normal Course Vital Signs Vital signs: Vital Signs Temperature 36.5 C 12/04/21 12:55 Pulse 53 L 12/04/21 12:55 Respiratory Rate 18 12/04/21 12:55 Blood Pressure 117/73 12/04/21 12:55 Pulse Oximetry 97 12/04/21 12:55 Temperature 36.5 C 12/04/21 12:55 Pulse 53 L 12/04/21 12:55 Respiratory Rate 18 12/04/21 12:55 Respiratory Effort Non-Labored 12/04/21 12:59 Blood Pressure 117/73 12/04/21 12:55 Blood Pressure Position Sitting 12/04/21 12:55 Pulse Oximetry 97 12/04/21 12:55 Oxygen Delivery Method Room Air 12/04/21 12:55 Oxygen Flow Rate 0 12/04/21 12:55
[2021-12-04 13:50] VITALS: RESP 18
[2021-12-04] MEDS: Normal Saline 1,000 ML 1000 ML IV (13:52)
[2021-12-04] MEDS: Ketorolac 15 MG/ML VIAL IVP (13:56)
[2021-12-04] MEDS: Prochlorperazine 10 MG/2 ML VIAL IVP (13:56)
[2021-12-04 13:59] LABS: Abs Immature Grans 0.05 10^3/uL (0.0-0.06); Absolute Basophil Count 0.03 10^3/uL (0.0-0.2); Absolute Lymphocyte Count 2.89 10^3/uL (1.2-3.4); Absolute Monocyte Count 0.88 10^3/uL (0.1-0.8); Absolute Neutrophil Count 7.37 10^3/uL (1.2-6.7); Basophils % 0.3; Eosinophils % 0.9; HCT 44.9 % (36.0-46.0); HGB 15.7 g/dL (11.2-15.7); Immature Grans % 0.4; Lymphocytes % 25.5; MCH 29.1 pg (27.0-33.0); MCV 83 fL (80-95); MPV 12.8 fL (8.0-11.0); Monocytes % 7.8; Neutrophils % 65.1; Platelet Count 225 10^3/uL (130-400); RDW 13.9 % (11.7-14.6); RDW-SD 42.2 fL; WBC 11.32 10^3/uL (4.4-10.8)
[2021-12-04 14:12] LABS: ALT 30 U/L (14-59); AST 19 U/L (15-37); Alkaline Phosphatase 55 U/L (46-116); Anion Gap 8.9 mmol/L (3-11); BUN 10 mg/dL (7-18); Bilirubin, Total 1.1 mg/dL (0.2-1.0); CO2 28.1 mmol/L (21.0-32.0); CREATININE 0.9 mg/dL (0.55-1.02); Calcium 9.2 mg/dL (8.5-10.1); Chloride 106 mmol/L (98-107); Glucose 90 mg/dL (74-106); Magnesium 2.2 mg/dL (1.8-2.4); Potassium 3.5 mmol/L (3.5-5.1); Sodium 143 mmol/L (136-145); Total Protein 7.5 g/dL (6.4-8.2)
--- NOTE | 2021-12-04 14:19 | DI.CT_ITS ---
Exam(s) CT HEAD WO EXAM: CT HEAD WO CLINICAL HISTORY: headache. TECHNIQUE: Imaging Protocol: Axial computed tomography images with coronal and sagittal reformatted images were created and reviewed COMPARISON: CT HEAD WITHOUT CONTRAST from 09/06/2015 FINDINGS: There are no skull fractures nor fluid in the visualized paranasal sinuses. Mild mucosal thickening noted in both maxillary sinuses. There is no evidence of intracranial hemorrhage, mass effect, or shift of midline structures. There are no extra-axial fluid collections. The ventricles are not enlarged or shifted and there is no blo od within the ventricular system nor within the basal cisterns. Calcification within the basal ganglia bilaterally are unchanged. IMPRESSION: No acute intracranial findings on this noninfused CT scan of the brain. No significant change compared to 2016. RADIATION DOSE DELIVERED: 797.85mGy.cm Total DLP DATA REPOSITORY: All CT scans at this facility are submitted to the National Radiology Data Registry (NRDR) Dose Index Registry (DIR) with the [employer] (A[employer]). RADIATION OPTIMIZATION: All CT scans at this facility use at least one of these dose optimization te chniques: automated exposure control; mA and/or kV adjustment per patient size (includes targeted exa ms where dose is matched to clinical indication); or iterative reconstruction.
[2021-12-04 15:26] VITALS: BP 165/76; PULSE 50; TEMP 36.6; O2SAT 100
[2021-12-04 15:37] VITALS: BP 165/76; PULSE 50; TEMP 36.6; O2SAT 100
== END 2021-12-04 15:40 | disposition home or self-care (01) ==
PROVIDERS: Emergency Provider Emergency Medicine; PCP Nurse Practitioner
DX: G43.909 Migraine, unspecified, not intractable, without status migrainosus (principal); Z87.891 Personal history of nicotine dependence
CPT/HCPCS: 80053; 96361; 96374; 96375; 99284; 70450; 83735; 85025; J0780; J1885

== ENCOUNTER 2021-12-05 18:30 | Emergency (ER) | payer MEDICARE, OTHER, SELFPAY ==
[2021-12-05 18:36] VITALS: BP 185/86; PULSE 68; RESP 18; TEMP 37.1; O2SAT 99
--- NOTE | 2021-12-05 19:55 | W.ED.GENAD ---
Discharge Plan Disposition Patient Disposition: ELOPED Condition: Stable Discharge Details Chief Complaint: GenMedical Clinical Impression: Chronic pain Primary Care Provider: Lulu Haider ED Provider: Juanita Brooks Home Meds and New Rx's Prescriptions: No Action cholecalciferol (vitamin D3) 125 mcg (5,000 unit) capsule 125 mcg PO DAILY tizanidine 2 mg capsule 2 mg PO TID PRN Hold Instructions: Home Medication placed on hold at Doctor's office multivitamin Tablet 1 tab PO DAILY docusate sodium 100 mg capsule 100 mg PO DAILY PRN lorazepam 0.5 mg tablet 0.5 mg PO BID PRN (Reason: anxiety) Qty: 60 5RF pregabalin [Lyrica] 150 mg capsule See Rx Instructions PO TID Qty: 360 3RF Rx Instructions: 150mg QAM, and qnoon. 300mg at HS. black cohosh root extract PO hydromorphone [Dilaudid] 2 mg tablet 2 mg PO Q4H MDD 8mg PRN (Reason: pain) Qty: 20 0RF clonidine HCl 0.1 mg tablet 0.1 mg PO BID Rx Instructions: [facility] pain clinic Medical Marijuana inhalation DAILY PRN Rx Instructions: Renewed by Pain CLinic 02/09/21 [facility] Ubrelvy 50 mg tablet 50 mg PO DAILY Label Comments: 10/25/21 note Rx Instructions: as a single dose; may repeat once in >=2 hours after first dose if needed zolpidem 10 mg tablet 10 mg PO QHS PRN (Reason: sleep) Qty: 90 1RF oxycodone 10 mg tablet 10 mg PO QID PRN MDD 40mg PRN (Reason: pain) Qty: 112 0RF Discharge Instructions Instructions: Chronic Pain (ED) Medical Decision Making At bedside for patient evaluation patient and her and are requesting she go to [facility]. Patient eloped from department, I was not able to complete HPI or physical exam. Patient and family state that they are going to [facility] to see their pain specialist. HPI General Mode of arrival: ambulatory. Date/Time Provider Initiated Documentation: 12/05/21 18:33. Limitations to Documentation: no limitations. Information obtained by: patient and family (). HPI Narrative: At bedside for patient evaluation patient and her and are requesting she go to [facility]. Patient eloped from department, I was not able to complete HPI or physical exam. Patient and family state that they are going to [facility] to see their pain specialist. Related Data Home Medications Medication Instructions Recorded Confirmed cholecalciferol (vitamin D3) 125 125 mcg PO DAILY 03/15/20 12/05/21 mcg (5,000 unit) capsule docusate sodium 100 mg capsule 100 mg PO DAILY PRN 03/15/20 12/05/21 multivitamin 1 tab PO DAILY 03/15/20 12/05/21 tizanidine 2 mg capsule 2 mg PO TID PRN 03/15/20 12/05/21 lorazepam 0.5 mg tablet 0.5 mg PO BID PRN anxiety #60 tabs 06/21/20 12/05/21 Medical Marijuana inhalation DAILY PRN 02/13/21 10/03/21 clonidine HCl 0.1 mg tablet 0.1 mg PO BID 02/13/21 12/05/21 black cohosh root extract PO 09/07/21 10/03/21 pregabalin 150 mg capsule (Lyrica) See Rx Instructions PO TID #360 10/03/21 12/05/21 caps ubrogepant 50 mg tablet (Ubrelvy) 50 mg PO DAILY 10/30/21 12/05/21 hydromorphone 2 mg tablet 2 mg PO Q4H PRN pain #20 tabs 11/07/21 12/04/21 (Dilaudid) oxycodone 10 mg tablet 10 mg PO QID PRN PRN pain #112 tabs 11/20/21 12/05/21 zolpidem 10 mg tablet 10 mg PO QHS PRN sleep #90 tabs 11/20/21 12/05/21 Previous Rx's Medication Instructions Recorded lorazepam 0.5 mg tablet 0.5 mg PO BID PRN anxiety #60 tabs 06/21/20 pregabalin 150 mg capsule (Lyrica) See Rx Instructions PO TID #360 10/03/21 caps hydromorphone 2 mg tablet 2 mg PO Q4H PRN pain #20 tabs 11/07/21 (Dilaudid) oxycodone 10 mg tablet 10 mg PO QID PRN PRN pain #112 tabs 11/20/21 zolpidem 10 mg tablet 10 mg PO QHS PRN sleep #90 tabs 11/20/21 Allergies Allergy/AdvReac Type Severity Reaction Status Date / Time nickel Allergy Unknown skin Verified 12/04/21 12:59 reaction & implant/bicep? Penicillins Allergy Unknown childhood Verified 12/04/21 12:59 erythromycin base AdvReac Intermediate tensed Verified 12/04/21 12:59 muscle throughout body mexiletine AdvReac Unknown nosebleeds Verified 12/04/21 12:59 Opioids-Methadone and Related AdvReac Unknown worsened Verified 12/04/21 12:59 headaches General Stated Complaint: GenMedical JOSE: 3 PFSH All Active Problems (Updated 12/05/21 @ 19:58 by Juanita Brooks NP) Migraine (Chronic) Complex regional pain syndrome of both lower extremities (Acute) Chronic pain of left wrist (Acute) 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 (Acute) per [facility] maxillo surg note from 12/29/20 Non-restorable tooth (Acute) per [facility] Maxillo surg note from 12/29/20 Chronic migraine without aura, intractable, with status migrainosus (Acute) Abdominal pain (Acute) Hiatal hernia (Chronic) Fall (Acute) Left wrist pain (Acute) Neuropathy (Chronic) Small Fiber neuropathy, bx 2016 and 07/04/20 [facility] Snoring (Acute) Obesity (Chronic) Prurigo nodularis (Acute 04/13/20) Skin lesion (Acute) Carpal tunnel syndrome on both sides (Acute 12/19/15) Chronic right shoulder pain (Acute) Nausea (Acute) Complex regional pain syndrome of upper extremity (Acute) 08/22/20 [facility] Pt should not receive opioids which can exacerbate CRPS symptoms. Opioids excite NMDA receptor which can perpetuate CRPS symptoms Asthenia (Acute) Muscle pain (Acute) Cervical radiculopathy (Acute) Neck pain (Acute) Sialoadenitis (Acute) Hypertensive disorder (Chronic) Chronic pain (Chronic 10/01/18) Psychophysiologic insomnia (Acute) Generalized anxiety disorder (Acute) Hyperlipidemia (Acute) Transient right leg weakness (Acute) Paresthesia of bilateral legs (Acute) Surgical History (Updated 06/29/21 @ 09:22 by ERIK Melo) De Quervain's tenosynovitis LEFT S/P Release: 04/25/2021 History of breast biopsy (11/30/09) Right History of left oophorectomy (04/09/14) History of salpingectomy (04/09/14) Bilateral History of shoulder surgery (06/24/13) Right Shoulder: A/A w/KRITSIN and biceps tenodsis, distal clavical incision, chromium joint resection. History of shoulder surgery (12/21/14) Metal removed from (R) shoulder. History of surgery Cervical Epidural Steroid Injection: 08/09/15 Caudal Injection: 04/09/12 & 08/27/12 Right Cervical Medial Nerve Branch Block: 08/24/15 History of tonsillectomy (04/22/72) Family History Father Adopted Throat cancer Hypertension Mother Anxiety Maternal Grandmother Diabetes Sister Diabetes Lupus Social History Smoking/Tobacco Use Status: Former Tobacco Use Quit Date: 04/22/02 Tobacco: How many years used: 6 Smoking risk assessment performed?: Yes Alcohol Intake: current Alcohol Intake frequency: holidays/special occasions only Alcohol type: wine Drug use: Occasionally Substance use type: marijuana Details: Medical Marijuana Adopted: No Caregiver/Support person: No Foster care: No Household members: significant other Housing: house Communication Needs: None and Corrective Lenses Do you need help understanding health information?: Rarely Sexually active: Yes Do you think of yourself as: straight/heterosexual Current gender identity: female What is your relationship status?: How often do you talk on the phone with friends or family?: three or more times per week Do you belong to any clubs or organized social groups?: no Panel score (0-1 are the most socially isolated patients): 2 What type of physical activity do you participate in: none Special curtis needs: No Seatbelt use: always 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 Do you feel safe at home: Yes Do you feel safe in your relationship?: Yes Course Vital Signs Vital signs: Vital Signs Temperature 37.1 C 12/05/21 18:36 Pulse 68 12/05/21 18:36 Respiratory Rate 18 12/05/21 18:36 Blood Pressure 185/86 H 12/05/21 18:36 Pulse Oximetry 99 12/05/21 18:36 Temperature 37.1 C 12/05/21 18:36 Temperature Source Temporal Artery Scan 12/05/21 18:36 Pulse 68 12/05/21 18:36 Respiratory Rate 18 12/05/21 18:36 Blood Pressure 185/86 H 12/05/21 18:36 Blood Pressure Position Sitting 12/05/21 18:36 Pulse Oximetry 99 12/05/21 18:36 Oxygen Delivery Method Room Air 12/05/21 18:36 Oxygen Flow Rate 0 12/05/21 18:36
== END 2021-12-05 19:58 ==
PROVIDERS: Emergency Provider Registered Nurse Emergency; PCP Nurse Practitioner
DX: G89.29 Other chronic pain (principal); Z53.20 Procedure and treatment not carried out because of patient's decision for unspecified reasons; Z87.891 Personal history of nicotine dependence
CPT/HCPCS: 99281

== ENCOUNTER 2021-12-13 12:53 | Outpatient (REF) | payer MEDICARE, OTHER, SELFPAY ==
[2021-12-13 16:03] LABS: HCT 47.2 % (36.0-46.0); HGB 16.2 g/dL (11.2-15.7); MCH 28.9 pg (27.0-33.0); MCHC 34.3 % (32.0-36.0); MCV 84 fL (80-95); Platelet Count 301 10^3/uL (130-400); RBC 5.61 10^6/uL (3.93-5.22); RDW 14.2 % (11.7-14.6); RDW-SD 43.5 fL; WBC 10.82 10^3/uL (4.4-10.8)
[2021-12-13 16:38] LABS: Hemoglobin A1C 5.7 % (<5.7)
[2021-12-13 17:09] LABS: ALT 26 U/L (14-59); AST 19 U/L (15-37); Albumin 4.6 g/dL (3.4-5.0); Alkaline Phosphatase 56 U/L (46-116); Anion Gap 13.8 mmol/L (3-11); BUN 11 mg/dL (7-18); Bilirubin, Total 0.7 mg/dL (0.2-1.0); CO2 27.2 mmol/L (21.0-32.0); CREATININE 0.7 mg/dL (0.55-1.02); Calcium 10.1 mg/dL (8.5-10.1); Calculated LDL 134 mg/dL (<100); Chloride 103 mmol/L (98-107); Cholesterol 219 mg/dL (<200); Glucose 99 mg/dL (74-106); HDL Cholesterol 63 mg/dL (40-60); Potassium 3.8 mmol/L (3.5-5.1); Sodium 144 mmol/L (136-145); TSH (W/Ref FT4) 0.92 uIU/mL (0.36-3.74); Triglyceride 110 mg/dL (<150)
== END 2021-12-13 12:54 | disposition home or self-care (01) ==
LOC: LBN 12:53
PROVIDERS: PCP Nurse Practitioner; Visit Provider Nurse Practitioner
DX: I10 Essential (primary) hypertension (principal); R73.09 Other abnormal glucose; E78.5 Hyperlipidemia, unspecified; E66.9 Obesity, unspecified
CPT/HCPCS: 80053; 80061; 85027; 83036; 84443

== ENCOUNTER → 2022-01-10 01:47 | Outpatient (CLI) | payer MEDICARE, OTHER, SELFPAY ==
--- NOTE | 2022-01-10 06:45 | DI.CT_ITS ---
Exam(s) CT CHEST/ABD/PEL W EXAM: CT CHEST/ABD/PEL W CLINICAL HISTORY: unintentional weight loss,hypertension,complex regional pain,r63.4. TECHNIQUE: Imaging Protocol: Axial computed tomography images with coronal and sagittal reformatted images were created and reviewed CONTRAST MATERIAL: Intravenous: Omnipaque 350 Contrast volume:100 ml Oral: None COMPARISON: No exams were available for comparison FINDINGS: CHEST: LUNGS: There are no infiltrates nor pleural effusions. No ominous pulmonary nodules. No pneumothora x. No significant focal findings in the trachea and mainstem bronchi. There is no bronchiectasis. MEDIASTINUM: There is no hilar nor mediastinal adenopathy. Visualized thyroid unremarkable. CARDIAC: Heart size is normal. There is no pericardial effusion.Caliber of the thoracic aorta is wit hin normal limits. OSSEOUS: No significant osseous lesions.No fractures.. ABDOMEN: There is no ascites. LIVER: There is a solitary subcapsular lesion in the right hepatic lobe measuring 1.7 x 1.4 cm, possi santosh an hemangioma but difficult to assess without multisequential postcontrast images. This could be further study with MRI. No other focal hepatic findings. No dilated intrahepatic ducts. GALLBLADDER/BILIARY: Gallbladder is contracted and contains multiple calculi. Gallbladder wall does not appear edematous. CBD is not dilated. There are no calculi in the nondilated CBD. PANCREAS: No evidence of pancreatic mass nor dilatation of the pancreatic duct. SPLEEN: Spleen is not enlarged. There are no intrasplenic lesions. Splenic and portal veins are storey nt. ADRENALS: There are no significant adrenal masses. KIDNEYS: Left kidney unremarkable.. There is cyst in the mid level of the right kidney which measure s 4.5 by 3.8 cm. There are no other focal kidney findings. No solid renal masses. ABDOMINAL AORTA: Abdominal aorta is not enlarged. LYMPH NODES: There is no retroperitoneal nor paraaortic adenopathy. ABDOMINAL WALL: Small anterior abdominal wall midline umbilical fat only containing hernia. No ingui nal hernias. GI: There is no evidence of bowel obstruction. PELVIS: LYMPH NODES: There is no intrapelvic nor inguinal adenopathy. GI: No evidence of appendicitis.No evidence of sigmoid diverticulitis.Mildly redundant sigmoid. No s ignificant sigmoid diverticular disease. URINARY BLADDER: No calculi nor masses evident REPRODUCTIVE: Uterus is surgically absent. Right ovary is identified measuring by 2 cm. Left ovary is not identified. OSSEOUS: No osseous lesions. No fractures. Multilevel disc space narrowing in the lumbar spine IMPRESSION: 1. No significant intrathoracic findings. 2. Multiple gallstones in the gallbladder is contracted. No dilatation of the biliary tree, both int ra and extrahepatic. 3. There is a solitary subcapsular lesion in the right hepatic lobe measuring 17 x 14 millimeters. T his may be an hemangioma but cannot assess accurately on this type of study. This would require perf orming contrast used MRI with him angioma protocol. No other focal findings in the liver. 4. There is a cyst in the right kidney measuring 4.8 x 3.8 cm. No solid renal masses. No calculi. No hydronephrosis. 5. Uterus surgically absent. Left ovary probably surgically absent. Right ovary appears unremarkab le. No free fluid in the abdomen and pelvis. 6,. No significant osseous lesions. RADIATION DOSE DELIVERED: 2,434.15mGy.cm Total DLP DATA REPOSITORY: All CT scans at this facility are submitted to the National Radiology Data Registry (NRDR) Dose Index Registry (DIR) with the [employer] ([employer]). RADIATION OPTIMIZATION: All CT scans at this facility use at least one of these dose optimization te chniques: automated exposure control; mA and/or kV adjustment per patient size (includes targeted exa ms where dose is matched to clinical indication); or iterative reconstruction.
[2022-01-10] MEDS: Normal Saline Flush 10 ML SYR IVP (09:13)
[2022-01-10] MEDS: Omnipaque 350 MG/ML 100 ML BTL IJ (09:14)
[2022-01-10] MEDS: Barium Sulfate 2% W/V-Berry Smoothie 450 ML BTL PO (09:33)
== END ==
PROVIDERS: PCP Nurse Practitioner; Visit Provider Nurse Practitioner
DX: G90.523 Complex regional pain syndrome I of lower limb, bilateral (principal); I10 Essential (primary) hypertension; R63.4 Abnormal weight loss; N28.89 Other specified disorders of kidney and ureter; K80.20 Calculus of gallbladder without cholecystitis without obstruction
CPT/HCPCS: 74177; 71260; J3490

== ENCOUNTER → 2022-01-17 02:21 | Outpatient (CLI) | payer MEDICARE, OTHER, SELFPAY ==
--- NOTE | 2022-01-17 07:45 | DI.US_ITS ---
Exam(s) US RENAL EXAM: US RENAL CLINICAL HISTORY: episodes very high BPs,RENAL CYST, N28.1,I10 TECHNIQUE: Ultrasound performed using standard protocol. COMPARISON: No exams were available for comparison FINDINGS: The kidneys are normal in size and shape. There is simple cyst of the right kidney measuring 43 mill imeters in greatest diameter. No other renal mass identified. No nephrolithiasis or hydronephrosis. Urinary bladder is unremarkable in appearance with pre and post void urinary bladder volume measureme nts 271 cc and 39 cc respectively. Ureteral jets were noted bilaterally. IMPRESSION: Simple cyst of the right kidney. Otherwise unremarkable examination. DATA REPOSITORY:
== END ==
PROVIDERS: PCP Nurse Practitioner; Visit Provider Nurse Practitioner
DX: I10 Essential (primary) hypertension (principal); N28.1 Cyst of kidney, acquired
CPT/HCPCS: 76770

== ENCOUNTER → 2022-01-24 01:44 | Outpatient (CLI) | payer MEDICARE, OTHER, SELFPAY ==
--- NOTE | 2022-01-24 10:14 | DI.US_ITS ---
APPROVED REPORT EXAM: Comprehensive 2D, Doppler, and color-flow Echocardiogram Patient Location: Out-Patient [employer] Furn[employer] Tender: Fely Pittman RDCS (AE) Indications: HTN, Labile BP Other Information Study Quality: Adequate Conclusion Normal left ventricular wall thickness and chamber size. Estimated ejection fraction is 60%. Wall m otion is normal Normal right ventricular size and systolic function Both atria are normal in size The aortic valve is trileaflet with trace regurgitation Normal mitral valve with mild regurgitation Normal tricuspid valve with trace regurgitation. Estimated right ventricular systolic pressure is 23 mmHg Mildly dilated ascending aorta measuring 3.52 cm Wall motion Left Ventricle The left ventricle is normal size. The left ventricular systolic function is normal. The left ventric ular ejection fraction is within the normal range. There is normal left ventricular wall thickness. T here is normal LV segmental wall motion. There is no ventricular septal defect visualized. LVEF is 60 %. Right Ventricle The right ventricle is normal size. The right ventricular systolic function is normal. The RVSP is 22 .9 mmHg. Atria The left atrium size is normal. The right atrium size is normal. The interatrial septum is intact wit h no evidence for an atrial septal defect. Aortic Valve The aortic valve is normal in structure. Aortic valve is trileaflet. There is no aortic valvular sten osis. Trace aortic regurgitation. Mitral Valve The mitral valve is normal in structure. No evidence of mitral valve stenosis. Mild mitral regurgitat ion. Tricuspid Valve The tricuspid valve is normal in structure. There is no tricuspid valve stenosis. Trace tricuspid reg urgitation. Pulmonic Valve The pulmonary valve is normal in structure. There is no pulmonic valvular stenosis. Trace pulmonic re gurgitation. Great Vessels The aortic root is normal in size. The ascending aorta is mildly dilated. Aortic arch is normal in ca liber. IVC is normal in size and collapses >50% with inspiration. Pericardium There is no pericardial effusion. 2D Dimensions IVSD d PLAX 0.93 cm F: 0.6-1.0 LV Vol A2C d MOD 149.3 mL LVPW d PLAX 0.94 cm F: 0.6 - 1.0 LV Vol A4C d MOD 134.6 mL LVID d PLAX 5.36 cm F: 3.8 - 5.2 LA vol/ BSA A2C s A-L 45.3 mL/m2 LVDs 3.50 cm F: 2.2 - 3.5 LA vol/ BSA A4C s A-L 28.1 mL/m2 Ao Root d 2.87 cm F: 2.7 - 3.3 LA Vol/ BSA Biplane s A-L 36.2 mL/m2 RA Area A4C 16.79 cm2 LA Area A4C s MOD 18.82 cm2 RA Vol/ BSA A4C s A-L 26.2 mL/m2 LA Area A2C s MOD 23.58 cm2 Ao Asc Diam d 3.52 cm F: 2.3 - 3.1 LV EF A4C MOD 60.2 % LV EF Teichholz 62.3 % LV EF A2C MOD 59.5 % LVEF (Lazcano's) 59.82 % F: 54 - 74 LV EF Biplane MOD 59.8 % LV Volume 109.62 mL F: 46 - 106 SV 85.77 mL LV Volume Index 58.00 mL/m2 F: 29 - 61 SV Index 45.38 mL/m2 LV Vol Biplane MOD 143.4 mL FS 33.85 % M-Mode TAPSE 2.49 cm (M/F) >1.7 LV Diastology MV E' medial 0.071 (>0.07 m/s) E/A Ratio 1.1 LV E/e MED 13.20 (<14) MV E Vmax 0.94 (0.4-1.3 m/s) MV E' lateral 0.094 (>0.1 m/s) MV A Vmax 0.85 (0.4-1.3 m/s) LV E/e LAT 10.00 (<14) MV E/A Ratio 1.10 MV E/E' medial 13.24 MV E/E' lateral 10.02 Aortic Valve LVOT Area 3.39 cm2 AoV Area Vmax 3.26 cm2 LVOT Vmax 1.55 m/s AoV Area/ BSA (Vmax) 1.73 cm2/m2 LVOT Mean Haroldo. 1.01 m/s LORRAINE Mean Haroldo. 3.02 cm2 LVOT Peak Grad 9.6 mmHg LORRAINE Mean Haroldo. Index 1.60 cm2/m2 LVOT Mean Grad 4.8 mmHg LVOT VTI 0.374 m LVOT Diam s 2.05 cm AoV Vmax 1.61 m/s Velocity Ratio 0.96 AoV Mean Haroldo. 1.13 m/s AoV Peak Grad 10.4 mmHg LVOT SV 126.77 mL AoV Mean Grad 5.7 mmHg AoV VTI 0.388 m AoV Area VTI 3.27 cm2 AoV Area/ BSA (VTI) 1.73 cm/m2 Mitral Valve MV DT 246 (160-240 msec) MV PHT 71 msec MV Area PHT 3.09 cm2 MV VTI 0.459 m MV Area VTI 2.76 (4.0-6.0 cm2) Pulmonary Valve PV Vmax 0.90 (0.5-1.5 m/s) RVOT Peak Gr. 1.59 mmHg PV Peak Grad 3.2 mmHg RVOT Mean Gr. 0.75 mmHg PV Mean Grad 1.8 mmHg RVOT VTI 0.157 m PV VTI 0.262 m RVOT Vmax 0.63 m/s Tricuspid Valve TR Peak Grad 19.8 mmHg TR Vmax 2.23 m/s RA Pressure 3.00 mmHg RVSP (TR) 22.9 mmHg
== END ==
PROVIDERS: PCP Nurse Practitioner; Visit Provider Nurse Practitioner
DX: I10 Essential (primary) hypertension (principal)
CPT/HCPCS: 93306

== ENCOUNTER → 2022-03-13 02:21 | Outpatient (CLI) | payer MEDICARE, OTHER, SELFPAY ==
--- NOTE | 2022-03-13 06:30 | DI.MRI_ITS ---
Exam(s) MR ABDOMEN WO/W EXAM: MR ABDOMEN WO/W CLINICAL HISTORY: ? hemangioma liver,,liver lesion,f/u abnl ct,r93.5 TECHNIQUE: Multiplanar multisequence MRI of the Abdomen was performed. CONTRAST MATERIAL: IV Contrast: 20 mL of Dotarem contrast administered. COMPARISON: CT CT CHEST/ABD/PEL W from 01/10/2022 FINDINGS: Liver: There is a 2.1 x 1.6 cm subcapsular hepatic lesion in the posterior segment of the right lobe of the liver. It is homogeneously hyperintense on the T2 weighted images. It is hypointense on the T1 weighted images. Following contrast administration there is a progression of enhancement of the m ass. At 10 minutes, the mass is completely opacified. The finding is most suggestive of a hepatic h emangioma. No other hepatic lesions are present. Pancreas: Unremarkable. Gallbladder and Bile Ducts: Gallstones are present. There is no biliary ductal dilatation. Adrenals: Unremarkable. Kidneys: There is a 4.3 x 4.2 cm simple cyst in the right kidney. No follow-up is recommended. Spleen: Unremarkable. Bowel: Unremarkable. Aorta: Unremarkable. Soft Tissues: Unremarkable. Bone: Unremarkable. Lymph Nodes: Unremarkable. IMPRESSION: 1. Findings consistent with a hemangioma in the right lobe of the liver. No follow-up is recommended . 2. Cholelithiasis. No biliary ductal dilatation. DATA REPOSITORY:
[2022-03-13] MEDS: Normal Saline - Diluent 50 ML VIAL 25 ML IJ (08:13)
[2022-03-13] MEDS: Gadoterate meglumine 20 ML VIAL IVP (08:14)
== END ==
PROVIDERS: PCP Nurse Practitioner; Visit Provider Nurse Practitioner
DX: K80.20 Calculus of gallbladder without cholecystitis without obstruction (principal); N28.1 Cyst of kidney, acquired
CPT/HCPCS: 74183

== ENCOUNTER 2022-04-05 02:58 | Outpatient (CLI) | payer MEDICARE, OTHER, SELFPAY ==
[2022-04-05 08:55] LABS: CREATININE 0.9 mg/dL (0.55-1.02); Estimated GFR 75.97 (mL/min/1.73m2)
[2022-04-05 09:14] LABS: Hemoglobin A1C 5.3 % (<5.7)
[2022-04-05 09:28] LABS: C-Reactive Protein 0.65 mg/dL (0.0-0.3); TSH 1.81 uIU/mL (0.36-3.74)
[2022-04-05 09:55] LABS: T4 7.2 ug/dL (4.7-13.3)
[2022-04-05 19:53] LABS: T3, Total 143 ng/dL (97-169)
== END 2022-04-05 02:59 | disposition home or self-care (01) ==
LOC: LBO 02:59
PROVIDERS: PCP Nurse Practitioner
DX: R10.9 Unspecified abdominal pain (principal); R09.89 Other specified symptoms and signs involving the circulatory and respiratory systems; R73.09 Other abnormal glucose
CPT/HCPCS: 36415; 82565; 83036; 84436; 84443; 84480; 86140